=== PATIENT | male | born 1955 | race Caucasian/White ===

== ENCOUNTER 2017-10-01 13:13 | Inpatient (IN) | payer SELFPAY ==
[~2017-10-01] VITALS: Ht 188 cm; Wt 103.0 kg
[~2017-10-01 13:13] MED LIST: LIDOCAINE HCL 1% PF 5 ML SYRINGE OTHER ONE; PROPOFOL 200 MG/20 ML AMP IV ONE; PROSCAP2 PO; ceFAZolin INJ 1,000 MG VIAL IV ONE; ePHEDrine/NS 25 MG/5 ML SYRINGE IV ONE
[2017-10-01 13:22] VITALS: BP 144/83; PULSE 67; RESP 17; TEMP 97.6; O2SAT 98
[2017-10-01] MEDS ORDERED: BUPIVACAINE HCL PF 0.5% 10 ML VIAL INFIL ONE (13:30)
[2017-10-01] MEDS ORDERED: SODIUM CHLOR 0.9% 1000 ML INJ 1,000 ML IV ONE (13:30)
[2017-10-01] MEDS ORDERED: MORPHINE SULFATE 4 MG/ML INJ IV PUSH ONE ×2 (13:30→18:00)
[2017-10-01] MEDS ORDERED: TETANUS/DIPHTHERIA TOXOID ADULT 0.5 ML VIAL IM ONE (13:30)
--- NOTE | 2017-10-01 13:55 | RADRPT ---
EXAM DATE: 10/01/2017 1:46 PM EDT AGE/SEX: 62 years / Male INDICATIONS: Left foot pain. Patient tripped over a cable and his 1st digit folded back. CLINICAL DATA: This is the patient's initial encounter. Patient reports that signs and symptoms have been present for 1 day and indicates a pain score of 10/10. MEDICAL/SURGICAL HISTORY: None. None. COMPARISON: No prior exams available for comparison. FINDINGS: There is an unusual alignment of the first digit at the interphalangeal joint with plantar dislocatio n of the distal phalanx on lateral view. There is an ossific density seen adjacent to the interphalan geal joint on lateral view which is of uncertain significance; this could represent an avulsive fragm ent. On the oblique view, there is questionable ossific density superimposed upon the skin line, an o pen fracture cannot be excluded. The remainder of the osseous structures of the forefoot are intact. No radiopaque foreign bodies. CONCLUSION: Dislocation of the first digit distal phalanx with possible associated avulsion fracture. Possible sk in discontinuity medially at the interphalangeal joint. Electronically signed by: Cleveland Jay MD 10/01/2017 1:54 PM EDT
[2017-10-01 14:10] LABS: AUTOMATED NEUTROPHIL # 4.4 TH/MM3 (1.8-7.7); BASOPHIL # 0.1 TH/MM3 (0-0.2); BASOPHIL % 0.7 % (0.0-2.0); EOSINOPHIL # 0.4 TH/MM3 (0-0.4); EOSINOPHIL % 3.8 % (0.0-4.0); HEMOGLOBIN 13.8 GM/DL (13.0-17.0); LYMPH % 43.9 % (9.0-44.0); LYMPHOCYTE # 4.4 TH/MM3 (1.0-4.8); MEAN CELL VOLUME 83.9 FL (80.0-100.0); MEAN CORPUSCULAR HEMOGLOBIN 27.4 PG (27.0-34.0); MEAN CORPUSCULAR HGB CONC 32.7 % (32.0-36.0); MEAN PLATELET VOLUME 8.8 FL (7.0-11.0); MONO % 7.8 % (0.0-8.0); MONOCYTE # 0.8 TH/MM3 (0-0.9); NEUT % 43.8 % (16.0-70.0); PLATELET COUNT 349 TH/MM3 (150-450); RED BLOOD COUNT 5.01 MIL/MM3 (4.50-5.90); RED CELL DISTRIBUTION WIDTH 14.4 % (11.6-17.2); WHITE BLOOD COUNT 10.1 TH/MM3 (4.0-11.0)
[2017-10-01 14:20] LABS: PROTHROMBIN TIME - PATIENT 10.2 SEC (9.8-11.6)
[2017-10-01 14:28] LABS: ALT (GPT) 23 U/L (12-78)
[2017-10-01 14:30] LABS: ALKALINE PHOSPHATASE 47 U/L (45-117); TOTAL BILIRUBIN ADULT 0.4 MG/DL (0.2-1.0); TOTAL PROTEIN 6.8 GM/DL (6.4-8.2)
[2017-10-01 14:31] LABS: ALBUMIN 3.4 GM/DL (3.4-5.0); BLOOD UREA NITROGEN 17 MG/DL (7-18); CALCIUM 8.9 MG/DL (8.5-10.1); CHLORIDE 108 MEQ/L (98-107); GLOMERULAR FILTRATION RATE 68 ML/MIN (>89); GLUCOSE,RANDOM 144 MG/DL (74-106); SODIUM (NA) 142 MEQ/L (136-145)
[2017-10-01 14:33] LABS: AST (GOT) 27 U/L (15-37)
--- NOTE | 2017-10-01 14:43 | PD ---
HPI Chief Complaint: Injury Time Seen by Provider: 13:21 Travel History International Travel<30 days: No Contact w/Intl Traveler<30days: No Traveled to known affect area: No History of Present Illness HPI Patient is a 62-year-old male presenting to the emergency department for evaluation of left first toe pain. Patient tripped over a cable at his house while he was walking on concrete, when he tripped forward all of his body weight landed on his left first toe. Patient states his pain is an 8 out of 10 , aching and throbbing. He states his toe feels numb. Patient denies any other injury or trauma. He denies feeling dizzy, having chest pain or shortness of breath prior to tripping and falling. Patient denies any significant past medical history although he does not have a primary doctor with which he follows. Symptom onset was sudden, symptoms are moderate in nature, there are no alleviating factors, pain is constant in nature. Patient' s tetanus vaccine was administered in 2013. [facility] Past Medical History Medical History: Denies Significant Hx Diverticulitis: Yes Hypertension: Yes (NO MEDS ) Immunizations Current: No Tetanus Vaccination: < 5 Years Influenza Vaccination: No Past Surgical History Surgical History: No Previous Surgery Social History Alcohol Use: No Tobacco Use: No (QUIT 30 YEARS AGO) Substance Use: Yes (MARIJUANA) Allergies-Medications (Allergen,Severity, Reaction): Coded Allergies: No Known Allergies (Verified Adverse Reaction, Unknown, 10/01/17) Reported Meds & Prescriptions Reported Meds & Active Scripts Active No Active Prescriptions or Reported Medications Review of Systems Except as stated in HPI: all other systems reviewed are Neg Musculoskeletal: Positive: Limited ROM, Pain Skin: Positive Other (Open fracture) Physical Exam Narrative GENERAL: Well-developed, well-nourished, alert male. Presenting in no acute distress. SKIN: Warm and dry. 3 cm laceration to the left first toe over the DIP joint. HEAD: Atraumatic. Normocephalic. EYES: Pupils equal and round. No scleral icterus. No injection or drainage. ENT: No nasal bleeding or discharge. Mucous membranes pink and moist. NECK: Trachea midline. No JVD. CARDIOVASCULAR: Regular rate and rhythm. RESPIRATORY: No accessory muscle use. Clear to auscultation. Breath sounds equal bilaterally. GASTROINTESTINAL: Abdomen soft, non-tender, nondistended. Hepatic and splenic margins not palpable. MUSCULOSKELETAL: Extremities without clubbing, cyanosis, or edema. Deformity to left first toe. Brisk less than 3 second capillary refill. Sensation is intact. NEUROLOGICAL: Awake and alert. No obvious cranial nerve deficits. Motor grossly within normal limits. Five out of 5 muscle strength in the arms and legs. Normal speech. PSYCHIATRIC: Appropriate mood and affect; insight and judgment normal. Data Data Last Documented VS Vital Signs Date Time Temp Pulse Resp B/P (MAP) Pulse Ox O2 Delivery O2 Flow Rate FiO2 10/01/17 17:00 68 18 175/77 (109) 97 Room Air 10/01/17 13:22 97.6 Orders Orders Complete Blood Count With Diff (10/01/17 13:25) Comprehensive Metabolic Panel (10/01/17 13:25) Act Partial Throm Time (Ptt) (10/01/17 13:25) Prothrombin Time / Inr (Pt) (10/01/17 13:25) Iv Access Insert/Monitor (10/01/17 13:25) Morphine Inj (Morphine Inj) (10/01/17 13:30) Sodium Chlor 0.9% 1000 Ml Inj (Ns 1000 M (10/01/17 13:30) Foot, Complete ([id number]) (10/01/17 ) Tetanus/Diphtheria Tox Adult (Tetanus/Di (10/01/17 13:30) Bupivacaine Pf 0.5% Inj (Marcaine Pf 0.5 (10/01/17 13:30) Cefazolin Inj (Ancef Inj) (10/01/17 14:15) Foot, Complete ([id number]) (10/01/17 ) Labs Laboratory Tests Test 10/01/17 13:45 White Blood Count 10.1 TH/MM3 Red Blood Count 5.01 MIL/MM3 Hemoglobin 13.8 GM/DL Hematocrit 42.0 % Mean Corpuscular Volume 83.9 FL Mean Corpuscular Hemoglobin 27.4 PG Mean Corpuscular Hemoglobin Concent 32.7 % Red Cell Distribution Width 14.4 % Platelet Count 349 TH/MM3 Mean Platelet Volume 8.8 FL Neutrophils (%) (Auto) 43.8 % Lymphocytes (%) (Auto) 43.9 % Monocytes (%) (Auto) 7.8 % Eosinophils (%) (Auto) 3.8 % Basophils (%) (Auto) 0.7 % Neutrophils # (Auto) 4.4 TH/MM3 Lymphocytes # (Auto) 4.4 TH/MM3 Monocytes # (Auto) 0.8 TH/MM3 Eosinophils # (Auto) 0.4 TH/MM3 Basophils # (Auto) 0.1 TH/MM3 CBC Comment DIFF FINAL Differential Comment Prothrombin Time 10.2 SEC Prothromb Time International Ratio 1.0 RATIO Activated Partial Thromboplast Time 22.2 SEC Blood Urea Nitrogen 17 MG/DL Creatinine 1.10 MG/DL Random Glucose 144 MG/DL Total Protein 6.8 GM/DL Albumin 3.4 GM/DL Calcium Level 8.9 MG/DL Alkaline Phosphatase 47 U/L Aspartate Amino Transf (AST/SGOT) 27 U/L Alanine Aminotransferase (ALT/SGPT) 23 U/L Total Bilirubin 0.4 MG/DL Sodium Level 142 MEQ/L Potassium Level 4.7 MEQ/L Chloride Level 108 MEQ/L Carbon Dioxide Level 25.0 MEQ/L Anion Gap 9 MEQ/L Estimat Glomerular Filtration Rate 68 ML/MIN MDM Medical Decision Making Medical Screen Exam Complete: Yes Emergency Medical Condition: Yes Interpretation(s) Vital Signs Date Time Temp Pulse Resp B/P (MAP) Pulse Ox O2 Delivery O2 Flow Rate FiO2 10/01/17 13:22 97.6 67 17 144/83 (103) 98 Differential Diagnosis Dislocation versus open fracture versus partial amputation versus other Narrative Course Patient is a 62-year-old male that presented to emergency department for evaluation of left first toe laceration, on exam there is bone protruding from the laceration. Labs and imaging ordered and pending. Patient placed on telemetry monitoring continuous pulse oximetry. Initial x-ray shows a dislocation of the first digit phalanx with possible associated avulsion fracture. 0.5% bupivacaine was used to perform a digital block to the left first toe. Toe was reduced without difficulty, patient tolerated well. Repeat imaging was ordered. On-call collateral clerk paged Labs reviewed, no acute findings identified. Repeat x-ray of the left foot shows successful reduction. Discussed case with on-call collateral clerk, patient will be taken to the OR. Patient was kept n.p.o., time to be determined. Findings were discussed with patient, his pain is well controlled. Diagnosis Primary Impression: Open fracture Admitting Information Admitting Physician Requests: Observation Scripts No Active Prescriptions or Reported Meds Condition: Stable Anyi Mckeon Oct 01, 2017 14:43
--- NOTE | 2017-10-01 14:59 | RADRPT ---
EXAM DATE: 10/01/2017 2:54 PM EDT AGE/SEX: 62 years / Male INDICATIONS: Post reduction. CLINICAL DATA: This is the patient's initial encounter. Patient reports that signs and symptoms have been present for 1 day and indicates a pain score of 5/10. MEDICAL/SURGICAL HISTORY: None. None. COMPARISON: [facility] – [place], FOOT LEFT COMPLETE ([id number]), 10/01/2017. . FINDINGS: 3 images of the left foot are performed status post reduction of first interphalangeal joint dislocat ion. On the 3 views, there is normal alignment of the phalanges at the interphalangeal joint. There i s a corticated ossific density seen medially to the distal proximal phalanx measuring 3 mm which may represent either an avulsive fragment or radiopaque foreign body. CONCLUSION: 1. Status post reduction of first digit interphalangeal joint dislocation with anatomic alignment. 2. 3 mm density in the soft tissues medial to the proximal phalanx may represent avulsion fragment o r foreign body. Electronically signed by: Cleveland Jay MD 10/01/2017 2:58 PM EDT
[2017-10-01 15:00] VITALS: BP 144/72; PULSE 74; RESP 18; O2SAT 96
[2017-10-01 17:00] VITALS: BP 175/77; PULSE 68; RESP 18; O2SAT 97
--- NOTE | 2017-10-01 19:11 | PD.CONS ---
History of Present Illness Service Foot and ankle surgery/podiatry Consult Requested By Reason for Consult Left hallux interphalangeal joint dislocation, open fracture Primary Care Physician No Primary Care Physician Diagnoses: History of Present Illness Podiatry consulted for this 62-year-old male for left hallux IPJ dislocation. Patient states he tripped over a cable at this hospital he is walking on concrete when he tripped all of his body weight landed on his left first toe causing a break in the skin in his bone to pop out. Patient states his pain is well controlled on oral pain medications but his pain is about an 8 out of 10 right now. He states his toe feels numb. He denies pain anywhere else. Patient denies any significant past medical history. His tetanus vaccine is administered in 2013 Review of Systems Respiratory: DENIES: Cough, Shortness of breath Cardiovascular: DENIES: Chest pain, Palpitations Musculoskeletal: COMPLAINS OF: Joint pain Psychiatric: DENIES: Anxiety, Confusion Past Family Social History Allergies: Coded Allergies: No Known Allergies (Verified Adverse Reaction, Unknown, 10/01/17) Past Medical History Denies Physical Exam Vital Signs Vital Signs Date Time Temp Pulse Resp B/P (MAP) Pulse Ox O2 Delivery O2 Flow Rate FiO2 10/01/17 17:00 68 18 175/77 (109) 97 Room Air 10/01/17 15:00 74 18 144/72 (96) 96 Room Air 10/01/17 13:40 70 98 Room Air 10/01/17 13:22 97.6 67 17 144/83 (103) 98 Physical Exam GENERAL: This is a well-nourished, well-developed patient, in no apparent distress. SKIN: Laceration noted to dorsal interphalangeal joint. HEAD: Atraumatic. EYES: Pupils equal round and reactive. ENT: Airway patent. NECK: Trachea midline. RESPIRATORY: Nonlabored breathing. MUSCULOSKELETAL:. Negative Homans sign bilaterally. NEUROLOGICAL: Awake and alert. Normal speech. Lower extremity physical exam: Vascular: Dorsalis pedis 2/4 posterior tibial 2/4 left lower extremity. Capillary refill time within normal limits to digits 5 bilateral foot. Edema present left hallux Neuro: Gross sensation intact to bilateral lower extremity. Pinpoint sensation intact. No hyperalgesia noted to bilateral lower extremity Dermatology: Normal temperature and turgor to bilateral lower extremity. Left hallux laceration noted approximately 3 cm in length directly over interphalangeal joint. Sanguinous drainage noted. Musculoskeletal: Tender to palpation to left hilar. Laboratory Laboratory Tests Test 10/01/17 13:45 White Blood Count 10.1 Red Blood Count 5.01 Hemoglobin 13.8 Hematocrit 42.0 Mean Corpuscular Volume 83.9 Mean Corpuscular Hemoglobin 27.4 Mean Corpuscular Hemoglobin Concent 32.7 Red Cell Distribution Width 14.4 Platelet Count 349 Mean Platelet Volume 8.8 Neutrophils (%) (Auto) 43.8 Lymphocytes (%) (Auto) 43.9 Monocytes (%) (Auto) 7.8 Eosinophils (%) (Auto) 3.8 Basophils (%) (Auto) 0.7 Neutrophils # (Auto) 4.4 Lymphocytes # (Auto) 4.4 Monocytes # (Auto) 0.8 Eosinophils # (Auto) 0.4 Basophils # (Auto) 0.1 CBC Comment DIFF FINAL Differential Comment Prothrombin Time 10.2 Prothromb Time International Ratio 1.0 Activated Partial Thromboplast Time 22.2 Blood Urea Nitrogen 17 Creatinine 1.10 Random Glucose 144 Total Protein 6.8 Albumin 3.4 Calcium Level 8.9 Alkaline Phosphatase 47 Aspartate Amino Transf (AST/SGOT) 27 Alanine Aminotransferase (ALT/SGPT) 23 Total Bilirubin 0.4 Sodium Level 142 Potassium Level 4.7 Chloride Level 108 Carbon Dioxide Level 25.0 Anion Gap 9 Estimat Glomerular Filtration Rate 68 Result Diagram: 10/01/17 1345 10/01/17 1345 Imaging Last Impressions Foot X-Ray 10/01/17 0000 Signed Impressions: CONCLUSION: 1. Status post reduction of first digit interphalangeal joint dislocation with anatomic alignment. 2. 3 mm density in the soft tissues medial to the proximal phalanx may represe nt avulsion fragment or foreign body. Assessment and Plan Assessment and Plan 62-year-old male with left hallux open dislocation of interphalangeal joint Patient examined evaluated with all questions answered Patient to OR for debridement and irrigation of open interphalangeal joint dislocation and open reduction internal fixation of patella Consent obtained Left lower extremity marked Discussed all risks, alternatives, benefits, and complications associated with procedure patient would like to proceed with surgical intervention Sarah Fontenot DPM Oct 01, 2017 19:11
[2017-10-01] MEDS ORDERED: ceFAZolin INJ 1,000 MG VIAL ONE (19:55)
[2017-10-01] MEDS ORDERED: GENTAMICIN SULFATE 80 MG/2 ML VIAL ONE (20:00)
--- NOTE | 2017-10-01 20:58 | RADRPT ---
EXAM DATE: 10/01/2017 8:53 PM EDT AGE/SEX: 62 years / Male INDICATIONS: ORIF of left foot, great toe, done in the operating room. CLINICAL DATA: This is the patient's initial encounter. Patient reports that signs and symptoms have been present for 1 day and indicates a pain score of Nonresponsive. MEDICAL/SURGICAL HISTORY: None. None. COMPARISON: [facility] – [place], FOOT LEFT COMPLETE ([id number]), 10/01/2017. . FINDINGS: Spot film reveals wire fixation across the interphalangeal joint of the great toe and the first MTP. CONCLUSION: Fixation as above. Electronically signed by: Dar Matt MD 10/01/2017 8:57 PM EDT
[2017-10-01] MEDS ORDERED: NALOXONE HCL 0.4 MG/ML AMP IV PUSH PRN ×2 (21:00→21:45)
[2017-10-01] MEDS ORDERED: LACTULOSE SYRUP 20 GM/30 ML CUP PO PRN (21:00)
[2017-10-01] MEDS ORDERED: Post-op Orders (for Pharmacy) XX ONE ×2 (21:00)
[2017-10-01] MEDS: DOCUSATE SODIUM 50 MG/SENNA 8.6 MG TAB PO SCH (21:00)
[2017-10-01] MEDS ORDERED: DO NOT ADM ANY ANTICOAGULANT DRUGS PRN (21:00)
[2017-10-01] MEDS ORDERED: SODIUM CHLORIDE 0.9% FLUSH 10 ML FLUSH IV FLUSH PRN ×2 (21:00→21:45)
[2017-10-01] MEDS ORDERED: MAGNESIUM HYDROXIDE SUSP 30 ML CUP PO PRN (21:00)
[2017-10-01] MEDS ORDERED: BISACODYL 10 MG SUPP RECTAL PRN (21:00)
[2017-10-01] MEDS ORDERED: diphenhydrAMINE HCL 25 MG CAP PO PRN (21:00)
[2017-10-01] MEDS ORDERED: SENNOSIDES 8.6 MG TAB PO PRN (21:00)
--- NOTE | 2017-10-01 21:20 | HHI.PR ---
Immediate Post Op Note Procedure Date: Oct 01, 2017 Pre Op Diagnosis: Left hallux dislocation at IPJ, open fracture Post Op Diagnosis: Left hallux dislocation at IPJ, open fracture Surgeon: Sarah Fontenot Lithographic Artist(s): None Procedure: Left hallux ORIF, Open fracture debridement and irrigation Findings: None Complications: None Specimen(s) removed: None Estimated blood loss: 5cc Anesthesia: General Drains: None IVF Patient to: PACU Patient Condition: Good Sarah Fontenot DPM Oct 01, 2017 21:20
--- NOTE | 2017-10-01 21:36 | HHI.HP ---
[facility] Service [facility] Primary Care Physician No Primary Care Physician Admission Diagnosis Diagnoses: Chief Complaint: Left great toe pain Travel History International Travel<30 Days: No Contact w/Intl Traveler <30 Da: No Traveled to Known Affected Are: No History of Present Illness 62-year-old male with no medical history presented to the ED with complaints of left great toe pain. Patient states he was walking off his porch when he caught his toe on a step and bent sideways. Patient states prior to coming in he had 10/10 throbbing pain to the left toe with no radiation or associated symptoms. Patient was seen after surgery and upon examination patient denies any current pain. Denies any chest pain, shortness of breath, nausea or vomiting. Review of Systems Except as stated in HPI: all other systems reviewed are Neg Past Family Social History Past Medical History Patient denies any medical history Past Surgical History Patient denies any surgical history of prior to today Reported Medications Reported Meds & Active Scripts Active No Active Prescriptions or Reported Medications Allergies: Coded Allergies: No Known Allergies (Verified Allergy, Unknown, 10/01/17) Family History Patient denies any family history no heart disease or cancer Social History Tobacco use: Denies Alcohol use: Denies Physical Exam Vital Signs Vital Signs Date Time Temp Pulse Resp B/P (MAP) Pulse Ox O2 Delivery O2 Flow Rate FiO2 10/01/17 20:58 97.5 73 18 162/81 (108) 99 Nasal Cannula 2 10/01/17 19:25 10/01/17 17:00 68 18 175/77 (109) 97 Room Air 10/01/17 15:00 74 18 144/72 (96) 96 Room Air 10/01/17 13:40 70 98 Room Air 10/01/17 13:22 97.6 67 17 144/83 (103) 98 Physical Exam GENERAL: This is a well-nourished, well-developed patient, in no apparent distress. SKIN: Left great toe wrapped in surgical bandage HEAD: Atraumatic. Normocephalic. No temporal or scalp tenderness. EYES: Pupils equal round and reactive. CARDIOVASCULAR: Regular rate and rhythm without murmurs, gallops, or rubs. RESPIRATORY: Clear to auscultation. Breath sounds equal bilaterally. No wheezes , rales, or rhonchi. GASTROINTESTINAL: Abdomen soft, non-tender, nondistended. MUSCULOSKELETAL: Left toe tender, sensation intact NEUROLOGICAL: Awake and alert. Normal speech. Laboratory Laboratory Tests Test 10/01/17 13:45 White Blood Count 10.1 Red Blood Count 5.01 Hemoglobin 13.8 Hematocrit 42.0 Mean Corpuscular Volume 83.9 Mean Corpuscular Hemoglobin 27.4 Mean Corpuscular Hemoglobin Concent 32.7 Red Cell Distribution Width 14.4 Platelet Count 349 Mean Platelet Volume 8.8 Neutrophils (%) (Auto) 43.8 Lymphocytes (%) (Auto) 43.9 Monocytes (%) (Auto) 7.8 Eosinophils (%) (Auto) 3.8 Basophils (%) (Auto) 0.7 Neutrophils # (Auto) 4.4 Lymphocytes # (Auto) 4.4 Monocytes # (Auto) 0.8 Eosinophils # (Auto) 0.4 Basophils # (Auto) 0.1 CBC Comment DIFF FINAL Differential Comment Prothrombin Time 10.2 Prothromb Time International Ratio 1.0 Activated Partial Thromboplast Time 22.2 Blood Urea Nitrogen 17 Creatinine 1.10 Random Glucose 144 Total Protein 6.8 Albumin 3.4 Calcium Level 8.9 Alkaline Phosphatase 47 Aspartate Amino Transf (AST/SGOT) 27 Alanine Aminotransferase (ALT/SGPT) 23 Total Bilirubin 0.4 Sodium Level 142 Potassium Level 4.7 Chloride Level 108 Carbon Dioxide Level 25.0 Anion Gap 9 Estimat Glomerular Filtration Rate 68 Result Diagram: 10/01/17 1345 10/01/17 1345 Imaging Last Impressions Toe X-Ray 10/01/17 0000 Signed Impressions: CONCLUSION: Fixation as above. Foot X-Ray 10/01/17 0000 Signed Impressions: CONCLUSION: Fixation left great toe as above. Caprini VTE Risk Assessment Caprini VTE Risk Assessment: No/Low Risk (score <= 1) Caprini Risk Assessment Model Point Value = 1 Point Value = 2 Point Value = 3 Point Value = 5 Age 41-60 Minor surgery BMI > 25 kg/m2 Swollen legs Varicose veins or History of unexplained or recurrent spontaneous Oral contraceptives or hormone replacement Sepsis (< 1 month) Serious lung disease, including pneumonia (< 1 month) Abnormal pulmonary function Acute myocardial infarction Congestive heart failure (< 1 month) History of inflammatory bowel disease Medical patient at bed rest Age 61-74 Arthroscopic surgery Major open surgery (> 45 min) Laparoscopic surgery (> 45 min) Malignancy Confined to bed (> 72 hours) Immobilizing plaster cast Central venous access Age >= 75 History of VTE Family history of VTE Factor V Leiden Prothrombin [id number] Lupus anticoagulant Anticardiolipin antibodies Elevated serum homocysteine Heparin-induced thrombocytopenia Other congenital or acquired thrombophilia Stroke (< 1 month) Elective arthroplasty Hip, pelvis, or leg fracture Acute spinal cord injury (< 1 month) Prophylaxis Regimen Total Risk Factor Score Risk Level Prophylaxis Regimen 0-1 Low Early ambulation 2 Moderate Order ONE of the following: *Sequential Compression Device (SCD) *Heparin 5000 units SQ BID 3-4 Higher Order ONE of the following medications: *Heparin 5000 units SQ TID *Enoxaparin/Lovenox 40 mg SQ daily (WT < 150 kg, CrCl > 30 mL/min) *Enoxaparin/Lovenox 30 mg SQ daily (WT < 150 kg, CrCl > 10-29 mL/min) *Enoxaparin/Lovenox 30 mg SQ BID (WT < 150 kg, CrCl > 30 mL/min) AND/OR *Sequential Compression Device (SCD) 5 or more Highest Order ONE of the following medications: *Heparin 5000 units SQ TID (Preferred with Epidurals) *Enoxaparin/Lovenox 40 mg SQ daily (WT < 150 kg, CrCl > 30 mL/min) *Enoxaparin/Lovenox 30 mg SQ daily (WT < 150 kg, CrCl > 10-29 mL/min) *Enoxaparin/Lovenox 30 mg SQ BID (WT < 150 kg, CrCl > 30 mL/min) AND *Sequential Compression Device (SCD) Assessment and Plan Assessment and Plan 62-year-old male with no medical history presented to the ED with complaints of left great toe pain. Toe dislocation Left foot x-ray reviewed and shows a left hallux dislocation at the IPJ -ORIF performed by podiatry with I&D -Continue IV antibiotics Ancef and clindamycin -Pain management with IV morphine and p.o. [place] Hypertension, possibly new onset, possibly related to pain -Continue to monitor, patient may benefit from lisinopril if hypertension does not resolve DVT prophylaxis: SCDs on nonaffected leg Discussed Condition With Patient and RN Physician Certification 2 Midnight Certification Type: Admission for Inpatient Services Order for Inpatient Services The services are ordered in accordance with Medicare regulations or non- Medicare payer requirements, as applicable. In the case of services not specified as inpatient-only, they are appropriately provided as inpatient services in accordance with the 2-midnight benchmark. Estimated LOS (days): 2 days is the estimated time the patient will need to remain in the hospital, assuming treatment plan goals are met and no additional complications. Post-Hospital Plan: Home Ros Lemus Oct 01, 2017 21:36
[2017-10-01] MEDS ORDERED: ONDANSETRON ODT 4 MG TAB SL PRN (21:45)
[2017-10-01] MEDS ORDERED: ACETAMINOPHEN/HYDROcodone 325 MG/5 MG TAB PO PRN (21:45)
--- NOTE | 2017-10-01 21:52 | RADRPT ---
EXAM DATE: 10/01/2017 9:48 PM EDT AGE/SEX: 62 years / Male INDICATIONS: Post op, Left great toe CLINICAL DATA: This is the patient's subsequent encounter. Patient reports that signs and symptoms h ave been present for 1 day and indicates a pain score of 0/10. MEDICAL/SURGICAL HISTORY: None. None. COMPARISON: [facility] – [place], FOOT LEFT COMPLETE ([id number]), 10/01/2017. . FINDINGS: There is percutaneous wire fixation across the interphalangeal joint of the left great toe and the fi rst MTP. Normal alignment. CONCLUSION: Fixation left great toe as above. Electronically signed by: Dar Matt MD 10/01/2017 9:51 PM EDT
[2017-10-01] MEDS ORDERED: ONDANSETRON HCL 4 MG/2 ML VIAL ONE ×2 (21:58→22:13)
[2017-10-01] MEDS: CLINDAMYCIN INJ 900 MG in SODIUM CHLORIDE 0.9% INJ 100 ML IV SCH (22:00)
[2017-10-01] MEDS: SODIUM CHLORIDE 0.9% FLUSH 10 ML FLUSH IV FLUSH SCH (22:15)
[2017-10-01] MEDS ORDERED: ONDANSETRON HCL 4 MG/2 ML VIAL IV PUSH SCH (22:20)
[2017-10-01 22:40] VITALS: BP 156/82; PULSE 65; RESP 18; TEMP 97.4; O2SAT 97
[2017-10-02] VITALS (7 sets, daily range): BP systolic 148–178; BP diastolic 81–87; PULSE 63–73; RESP 16–18; TEMP 97.5–98.3; O2SAT 95–98
[2017-10-02] MEDS: ceFAZolin 2 GM PREMIX 50 ML IV SCH ×3 (04:22→19:38)
[2017-10-02] MEDS: ACETAMINOPHEN/HYDROcodone 325 MG/10 MG TAB PO PRN ×5 (05:09→23:16)
[2017-10-02] MEDS: CLINDAMYCIN INJ 900 MG in SODIUM CHLORIDE 0.9% INJ 100 ML IV SCH ×2 (06:23→14:27)
--- NOTE | 2017-10-02 06:55 | HHI.PR ---
Subjective Remarks Patient seen and examined this morning, their vitals are stable and the patient is afebrile. Reports toe pain. Denies CP or SOB. Objective Vital Signs Date Time Temp Pulse Resp B/P (MAP) Pulse Ox O2 Delivery O2 Flow Rate FiO2 10/02/17 04:00 97.6 63 18 148/81 (103) 97 10/02/17 00:00 95 21 10/01/17 22:40 97.4 65 18 156/82 (106) 97 10/01/17 22:30 97.5 61 21 155/77 (103) 96 Room Air 10/01/17 22:15 61 23 162/86 (111) 97 Nasal Cannula 2 10/01/17 22:00 70 23 172/95 (120) 97 Nasal Cannula 2 10/01/17 21:45 64 23 174/89 (117) 98 Nasal Cannula 2 10/01/17 21:30 63 23 160/85 (110) 99 Nasal Cannula 2 10/01/17 21:15 63 23 160/83 (108) 98 Nasal Cannula 2 10/01/17 21:00 70 23 162/76 (104) 98 Nasal Cannula 2 10/01/17 20:58 97.5 73 18 162/81 (108) 99 Nasal Cannula 2 10/01/17 19:25 10/01/17 17:00 68 18 175/77 (109) 97 Room Air 10/01/17 15:00 74 18 144/72 (96) 96 Room Air 10/01/17 13:40 70 98 Room Air 10/01/17 13:22 97.6 67 17 144/83 (103) 98 I/O 10/01/17 10/01/17 10/01/17 10/02/17 10/02/17 10/02/17 07:00 15:00 23:00 07:00 15:00 23:00 Intake Total 1100 ml 240 ml Output Total 300 ml Balance 1100 ml -60 ml Intake Oral 240 ml IV Total 1100 ml Output Urine Total 300 ml # Voids 0 # Bowel Movements 0 Result Diagram: 10/01/17 1345 10/01/17 1345 Imaging Last Impressions Toe X-Ray 10/01/17 0000 Signed Impressions: CONCLUSION: Fixation as above. Foot X-Ray 10/01/17 0000 Signed Impressions: CONCLUSION: Fixation left great toe as above. Objective Remarks GENERAL: Well-appearing, no acute distress SKIN: Warm and dry. HEAD: Normocephalic. EYES: No scleral icterus. No injection or drainage. NECK: Supple, trachea midline. No JVD or lymphadenopathy. CARDIOVASCULAR: Regular rate and rhythm without murmurs, gallops, or rubs. RESPIRATORY: Breath sounds equal bilaterally. No accessory muscle use. GASTROINTESTINAL: Abdomen soft, non-tender, nondistended. MUSCULOSKELETAL: No cyanosis, or edema. Left foot in brace and elevated. A/P Problem List: (1) Open fracture ICD Code: T14.8XXA - Other injury of unspecified body region, initial encounter Status: Acute Assessment and Plan This is a 62-year-old male patient with no significant medical history who presented to [place] with left great toe pain after stepping off the porch step. In the ED imaging was significant for a left hallux dislocation. Left hallux dislocation at IPJ, open fracture -Status post R ORIF in the OR by podiatry -Currently on Ancef and clindamycin -Pain control with [place] Elevated blood pressure, without a diagnosis of hypertension -BP consistently elevated - will start hctz 12.5 mg and titrate up. DVT prophy with lovenox Discharge Planning D/C pending podiatry clearance Elsy Castellano MD Oct 02, 2017 06:55
[2017-10-02] MEDS: DOCUSATE SODIUM 50 MG/SENNA 8.6 MG TAB PO SCH ×2 (07:27→19:35)
[2017-10-02] MEDS: SODIUM CHLORIDE 0.9% FLUSH 10 ML FLUSH IV FLUSH SCH ×2 (09:00→19:35)
[2017-10-02] MEDS ORDERED: SODIUM CHLORIDE 0.9% FLUSH 10 ML FLUSH IV FLUSH SCH (09:00)
[2017-10-02 09:40] LABS: AUTOMATED NEUTROPHIL # 8.1 TH/MM3 (1.8-7.7); BASOPHIL % 0.3 % (0.0-2.0); EOSINOPHIL # 0.2 TH/MM3 (0-0.4); EOSINOPHIL % 1.5 % (0.0-4.0); HEMATOCRIT 41.8 % (39.0-51.0); HEMOGLOBIN 13.6 GM/DL (13.0-17.0); LYMPH % 20.4 % (9.0-44.0); LYMPHOCYTE # 2.4 TH/MM3 (1.0-4.8); MEAN CELL VOLUME 83.3 FL (80.0-100.0); MEAN CORPUSCULAR HEMOGLOBIN 27.1 PG (27.0-34.0); MEAN CORPUSCULAR HGB CONC 32.5 % (32.0-36.0); MEAN PLATELET VOLUME 8.4 FL (7.0-11.0); MONO % 7.9 % (0.0-8.0); MONOCYTE # 0.9 TH/MM3 (0-0.9); NEUT % 69.9 % (16.0-70.0); PLATELET COUNT 317 TH/MM3 (150-450); RED BLOOD COUNT 5.02 MIL/MM3 (4.50-5.90); RED CELL DISTRIBUTION WIDTH 14.3 % (11.6-17.2); WHITE BLOOD COUNT 11.5 TH/MM3 (4.0-11.0)
[2017-10-02 10:08] LABS: BICARBONATE 26.9 MEQ/L (21.0-32.0); CALCIUM 8.4 MG/DL (8.5-10.1); CREATININE 0.82 MG/DL (0.60-1.30)
[2017-10-02] MEDS ORDERED: ENOXAPARIN SODIUM 40 MG/0.4 ML SYRINGE SQ SCH (11:00)
[2017-10-02] MEDS: HYDROCHLOROTHIAZIDE 12.5 MG CAP PO SCH (11:00)
[2017-10-02] MEDS ORDERED: MORPHINE SULFATE 4 MG/ML INJ IM PRN (11:45)
--- NOTE | 2017-10-02 14:04 | MR ---
cc: Sarah Fontenot DPM DATE: 10/01/2017 SURGEON: Sarah Fontenot DPM MACHINE STEAK TENDERIZER: None. PREOPERATIVE DIAGNOSIS: Left hallux dislocation at interphalangeal joint, open fracture. POSTOPERATIVE DIAGNOSIS: Left hallux dislocation at interphalangeal joint, open fracture. PROCEDURE PERFORMED: Left hallux ORIF, open fracture debridement and irrigation, repair of EHL tendon. ANESTHESIA: General. HEMOSTASIS: None. ESTIMATED BLOOD LOSS: 5 mL. MATERIALS: 3-0 Monocryl, 3-0 Prolene, 2-0 Vicryl. INJECTABLES: 10 mL of 0.5% Marcaine plain infiltrated about the left foot. COMPLICATIONS: None. DESCRIPTION OF PROCEDURE: The patient was brought back to the operating room, placed on the operating room table in the supine position. General anesthesia was then induced. Pneumatic ankle tourniquet was applied to left ankle; however, it was not inflated. Attention was then directed to the left hallux, at which time there was noted to be a laceration dorsally, which extended longitudinally over the interphalangeal joint. This laceration was copiously irrigated with normal saline and gentamicin. There was noted to be an EHL laceration as well as debris. All debris and nonviable tissue was removed from the left hallux. A K-wire was utilized to stabilize the interphalangeal joint, and it was placed through distal phalanx, proximal phalanx and metatarsal head. There was noted to be anatomic alignment. At this time, K-wire was cut, bent and Jurgan ball was applied. Attention was then directed to the EHL, at which time this was repaired with 2-0 Vicryl. Following repair of EHL, copious irrigation performed once again and subcutaneous tissue was closed with 3-0 Monocryl. Skin was closed with 3-0 Prolene. Adaptic, Xeroform, 4 x 4's, cast padding, Chuy were then applied to left foot. The patient tolerated the procedure and anesthesia well. He was transferred from the OR to the PACU with vital signs stable and neurovascular status intact to the left foot. He remained partial weightbearing to left foot. He will followup in office in 1 week and he is to receive 5 doses of IV antibiotics. NAVA Cummins , 01:43 PM , 02:03 PM
--- NOTE | 2017-10-02 15:47 | HHI.PR ---
Subjective Remarks Patient seen bedside. Resting comfortably. No concerns at this time. States well controlled pain. Objective Vital Signs Date Time Temp Pulse Resp B/P (MAP) Pulse Ox O2 Delivery O2 Flow Rate FiO2 10/02/17 12:00 98.0 65 16 178/87 (117) 96 10/02/17 08:00 97.5 64 16 174/81 (112) 95 10/02/17 04:00 97.6 63 18 148/81 (103) 97 10/02/17 00:00 95 21 10/01/17 22:40 97.4 65 18 156/82 (106) 97 10/01/17 22:30 97.5 61 21 155/77 (103) 96 Room Air 10/01/17 22:15 61 23 162/86 (111) 97 Nasal Cannula 2 10/01/17 22:00 70 23 172/95 (120) 97 Nasal Cannula 2 10/01/17 21:45 64 23 174/89 (117) 98 Nasal Cannula 2 10/01/17 21:30 63 23 160/85 (110) 99 Nasal Cannula 2 10/01/17 21:15 63 23 160/83 (108) 98 Nasal Cannula 2 10/01/17 21:00 70 23 162/76 (104) 98 Nasal Cannula 2 10/01/17 20:58 97.5 73 18 162/81 (108) 99 Nasal Cannula 2 10/01/17 19:25 10/01/17 17:00 68 18 175/77 (109) 97 Room Air I/O 10/01/17 10/01/17 10/01/17 10/02/17 10/02/17 10/02/17 07:00 15:00 23:00 07:00 15:00 23:00 Intake Total 1100 ml 240 ml Output Total 300 ml Balance 1100 ml -60 ml Intake Oral 240 ml IV Total 1100 ml Output Urine Total 300 ml # Voids 0 # Bowel Movements 0 Result Diagram: 10/02/1757 10/02/17856 Imaging Last Impressions Toe X-Ray 10/01/17 0000 Signed Impressions: CONCLUSION: Fixation as above. Foot X-Ray 10/01/17 0000 Signed Impressions: CONCLUSION: Fixation left great toe as above. Procedures Status post left hallux ORIF with debridement irrigation of open fracture date of surgery 10/01 Objective Remarks Left foot with active passive dorsiflexion of digits 2 through 5. Capillary refill time within normal limits of digits 1 through 5 left foot. Reported normal sensation. Pin present to distal tip of left hallux. Medications and IVs Current Medications Medications (Trade) Dose Ordered Sig/Rubin Route Start Time Stop Time Status Last Admin (NS Flush) 2 ml UNSCH PRN IV FLUSH 10/01/17 21:00 (NS Flush) 2 ml BID IV FLUSH 10/01/17 21:00 10/01/17 22:15 (Narcan Inj) 0.4 mg UNSCH PRN IV PUSH 10/01/17 21:00 Cefazolin Sodium/ Dextrose 50 ml @ 100 mls/hr Q8H IV 10/02/17 04:00 10/02/17 10:39 (Benadryl) 25 mg Q6H PRN PO 10/01/17 21:00 (Lissa-Colace) 1 tab BID PO 10/01/17 21:00 10/02/17 07:27 (Milk Of Magnesia Liq) 30 ml Q12H PRN PO 10/01/17 21:00 (Senokot) 17.2 mg Q12H PRN PO 10/01/17 21:00 (Dulcolax Supp) 10 mg DAILY PRN RECTAL 10/01/17 21:00 (Lactulose Liq) 30 ml DAILY PRN PO 10/01/17 21:00 ([facility] [place] [facility] Information) ALL NURSING DEPARTME... UNSCH PRN .XX 10/01/17 21:00 10/02/17 20:59 (NS Flush) 2 ml UNSCH PRN IV FLUSH 10/01/17 21:45 (NS Flush) 2 ml BID IV FLUSH 10/02/17 09:00 (Narcan Inj) 0.4 mg UNSCH PRN IV PUSH 10/01/17 21:45 ([place] 5-325 Mg) 1 tab Q4H PRN PO 10/01/17 21:45 10/02/17 11:41 ([place] 10-325 Mg) 1 tab Q4H PRN PO 10/01/17 21:45 10/02/17 14:26 (Morphine Inj) 2 mg Q3H PRN IV PUSH 10/01/17 21:45 (Zofran Odt) 4 mg Q6H PRN SL 10/01/17 21:45 (Lovenox Inj) 40 mg Q24H SQ 10/02/17 11:00 10/02/17 11:40 (Microzide) 12.5 mg DAILY PO 10/02/17 11:00 (Morphine Inj) 2 mg Q4H PRN IM 10/02/17 11:45 Clindamycin/ Sodium Chloride 50 ml @ 100 mls/hr Q8H IV 10/02/17 22:00 Assessment and Plan Assessment and Plan 62-year-old male with left hallux open dislocation of interphalangeal joint Patient examined evaluated with all questions answered Patient okay to DC once 5 doses of IV antibiotics have been administered Please DC on 10 days of oral antibiotics Patient to follow-up in office within 1 week of discharge Heel weightbearing in surgical shoe with walker assist Please keep dressing clean dry and intact do not remove dressing Sarah Fontenot DPM Oct 02, 2017 15:47
[2017-10-02] MEDS: CLINDAMYCIN 900 MG/NS PREMIX 50 ML IV SCH (21:32)
[2017-10-02] MEDS: MORPHINE SULFATE 4 MG/ML INJ IV PUSH PRN (21:37)
[2017-10-03 00:30] VITALS: BP 147/83; PULSE 68; RESP 18; TEMP 97.9; O2SAT 97
[2017-10-03] MEDS: ACETAMINOPHEN/HYDROcodone 325 MG/10 MG TAB PO PRN ×3 (03:20→11:47)
[2017-10-03] MEDS: ceFAZolin 2 GM PREMIX 50 ML IV SCH (03:20)
[2017-10-03] MEDS: MORPHINE SULFATE 4 MG/ML INJ IV PUSH PRN (04:59)
[2017-10-03] MEDS: CLINDAMYCIN 900 MG/NS PREMIX 50 ML IV SCH (05:58)
[2017-10-03] MEDS: DOCUSATE SODIUM 50 MG/SENNA 8.6 MG TAB PO SCH (07:36)
[2017-10-03] MEDS: HYDROCHLOROTHIAZIDE 12.5 MG CAP PO SCH (07:36)
[2017-10-03 08:00] VITALS: BP 176/85; PULSE 72; RESP 18; TEMP 97.9; O2SAT 98
[2017-10-03] MEDS ORDERED: HYDR-3583 PO (09:04)
[2017-10-03] MEDS ORDERED: CEPH-460 PO (09:05)
--- NOTE | 2017-10-03 09:13 | HHI.PR ---
Subjective Remarks Complaint of pain in the left foot. No other concerns at this time. Wants to go home today. Objective Vitals Vital Signs Date Time Temp Pulse Resp B/P (MAP) Pulse Ox O2 Delivery O2 Flow Rate FiO2 10/03/17 08:00 97.9 72 18 176/85 (115) 98 10/03/17 00:30 97.9 68 18 147/83 (104) 97 10/02/17 20:53 97 21 10/02/17 20:00 98.2 73 18 172/83 (112) 98 10/02/17 16:00 98.3 68 16 158/81 (106) 97 10/02/17 15:30 18 10/02/17 12:45 18 10/02/17 12:00 98.0 65 16 178/87 (117) 96 I/O 10/02/17 10/02/17 10/02/17 10/03/17 10/03/17 10/03/17 07:00 15:00 23:00 07:00 15:00 23:00 Intake Total 240 ml 600 ml 100 ml 290 ml Output Total 300 ml 600 ml 250 ml 300 ml Balance -60 ml 0 ml -150 ml -10 ml Intake Oral 240 ml 600 ml 240 ml IV Total 100 ml 50 ml Output Urine Total 300 ml 600 ml 250 ml 300 ml # Voids 0 # Bowel Movements 0 3 1 Result Diagram: 10/02/1757 10/02/17 0857 Objective Remarks GENERAL: This is a well-nourished, well-developed patient, in no apparent distress. CARDIOVASCULAR: Regular rate and rhythm without murmurs, gallops, or rubs. RESPIRATORY: Clear to auscultation. Breath sounds equal bilaterally. No wheezes , rales, or rhonchi. MUSCULOSKELETAL: Left foot bandage clean dry and intact neurovascularly intact and nonfocal. NEURO: Alert & Oriented x4 to person, place, time, situation. Moves all ext x4 A/P Problem List: (1) Open fracture of great toe of left foot ICD Code: S92.402B - Displaced unspecified fracture of left great toe, initial encounter for open fracture Status: Acute Assessment and Plan This is a 62-year-old male patient with no significant medical history who presented to [place] with left great toe pain after stepping off the porch step. In the ED imaging was significant for a left hallux dislocation. Left hallux dislocation distal, open fracture -Status post operative day #1 left great toe ORIF in the OR by podiatry -Currently on Ancef and clindamycin and completed 5 doses of IV antibiotic and will transition to 10 days of Keflex upon discharge -Pain control with [place] Elevated blood pressure, without a diagnosis of hypertension -BP consistently elevated -Started hctz 12.5 mg and titrate up to 25 mg p.o. daily today. DVT prophy with lovenox Discharge Planning Discharge patient to home Condition on discharge: Improved Regular Diet as tolerated Left heel weight bear as tolerated with rolling walker Rx written: [place] 10 one every 4 hours as needed for pain, Keflex 500 mg p.o. 3 times daily for 10 days, HCTZ 25 mg p.o. daily Follow-up with primary care physician Follow-up with podiatry Dr. Fontenot in 1 week Problem Qualifiers (1) Open fracture of great toe of left foot: Qualified Codes: S92.422B - Displaced fracture of distal phalanx of left great toe, initial encounter for open fracture Xiao Hewitt MD Oct 03, 2017 09:13
[2017-10-03] MEDS ORDERED: HYDR25TA5 PO (09:15)
[2017-10-03] MEDS ORDERED: HYDROCHLOROTHIAZIDE 12.5 MG CAP PO ONE (09:15)
--- NOTE | 2017-10-03 09:16 | HHI.DCPOC ---
Discharge Care Plan Diagnosis: (1) Open fracture of great toe of left foot Goals to Promote Your Health * To prevent worsening of your condition and complications * To maintain your health at the optimal level Directions to Meet Your Goals Take your medications as prescribed Follow your dietary instruction Follow activity as directed left heel weightbearing as tolerated Follow-up with podiatry in 1 week Keep your appointments as scheduled Take your immunizations and boosters as scheduled If your symptoms worsen call your PCP, if no PCP go to Urgent Care Center or Emergency Room Smoking is Dangerous to Your Health. Avoid second hand smoke Call the 24-hour hour crisis hotline for domestic abuse at Xiao Hewitt MD Oct 03, 2017 09:16
[2017-10-03 10:49] LABS: BASOPHIL % 0.2 % (0.0-2.0); EOSINOPHIL # 0.1 TH/MM3 (0-0.4); EOSINOPHIL % 0.8 % (0.0-4.0); LYMPH % 18.2 % (9.0-44.0); LYMPHOCYTE # 1.7 TH/MM3 (1.0-4.8); MEAN CELL VOLUME 84.4 FL (80.0-100.0); MEAN CORPUSCULAR HEMOGLOBIN 27.5 PG (27.0-34.0); MEAN CORPUSCULAR HGB CONC 32.5 % (32.0-36.0); MONO % 6.8 % (0.0-8.0); MONOCYTE # 0.6 TH/MM3 (0-0.9); PLATELET COUNT 265 TH/MM3 (150-450); RED BLOOD COUNT 5.09 MIL/MM3 (4.50-5.90); WHITE BLOOD COUNT 9.5 TH/MM3 (4.0-11.0)
[2017-10-03 11:02] LABS: BICARBONATE 25.7 MEQ/L (21.0-32.0); CALCIUM 8.4 MG/DL (8.5-10.1); CREATININE 0.66 MG/DL (0.60-1.30)
[2017-10-03 12:00] VITALS: BP 168/81; PULSE 74; RESP 18; TEMP 97.2; O2SAT 96
[2017-10-04] MEDS ORDERED: HYDROCHLOROTHIAZIDE 25 MG TAB PO SCH (09:00)
== END 2017-10-03 12:58 | disposition home or self-care (01) | DRG 505 ==
LOC: NEPC 13:13 → HPAC 21:40 → N06A 22:50
PROVIDERS: ADMIT Family Medicine; ATTEND Family Medicine
PROC: 0MQT0ZZ Repair Left Foot Bursa and Ligament, Open Approach (ICD-10-PCS; 2017-10-01)
PROC: 0QSRXZZ Reposition Left Toe Phalanx, External Approach (ICD-10-PCS; 2017-10-01)
PROC: 0QSR04Z Reposition Left Toe Phalanx with Internal Fixation Device, Open Approach (ICD-10-PCS; principal; 2017-10-01 19:09)
DX: S92.422B Displaced fracture of distal phalanx of left great toe, initial encounter for open fracture (principal); I10 Essential (primary) hypertension; S93.512A Sprain of interphalangeal joint of left great toe, initial encounter; F12.90 Cannabis use, unspecified, uncomplicated; W01.0XXA Fall on same level from slipping, tripping and stumbling without subsequent striking against object, initial encounter; Y92.007 Garden or yard of unspecified non-institutional (private) residence as the place of occurrence of the external cause; Y93.01 Activity, walking, marching and hiking; Z87.891 Personal history of nicotine dependence
CPT/HCPCS: 28660; 64450; 73630; 73660; 76000; 80048; 80053; 85025; 85610; 85730; 94150; 96361; 96365; 96366; 96375; 96376; J0690; J1580; J1650; J2270; J2405; J3010; J7030; L3260